=== PATIENT | male | born 1970 ===

== ENCOUNTER 2024-12-15 08:11 | Outpatient (CLI) | payer OTHER ==
--- NOTE | 2024-12-15 09:52 | RADIOLOGY REPORT ---
CLINICAL HISTORY: PAIN IN LEFT LOWER LEG COMPARISON: None TECHNIQUE: Multisequence multiplanar MRI images of the left knee were obtained without contrast. FINDINGS: Cruciate ligaments: Mildly thickened ACL with mild T2 hyperintense signal, may be seen with mucoid de generation or sequela of sprain. PCL is intact and appears otherwise unremarkable. Extensor mechanism: Quadriceps mechanism and patellar tendon are intact. Mild edema in the superior a spect of Hoffa's fat pad. Collateral ligaments: Medial and lateral collateral ligaments are intact and otherwise unremarkable. Menisci: Radial tear of the junction of the posterior horn and posterior root attachment of the media l meniscus, measuring up to 5 mm in transverse dimension, involving all 3 zones, with associated extr usion of the body of the medial meniscus beyond the medial tibial margin, abutting the MCL. Intrasubs tance signal in the body of the medial meniscus without extension to the articular surface to suggest tear. Lateral meniscus is intact. Cartilage: Mild chondral fraying minimal fissuring of the patella, greatest at the lateral patellar f acet. Bones: Minimal marrow edema in the lateral femoral condyle near the attachment site of the ACL, may b e reactive marrow signal changes. No acute fracture. Joint fluid: Moderate joint effusion. Other: Trace popliteal cyst. IMPRESSION: 1. Radial tear of the posterior horn/ posterior root junction of the medial meniscus with associated extrusion of the body of the medial meniscus. 2. Intrasubstance signal in the body of the medial meniscus without evidence of tear. 3. Thickened ACL with mildly increased T2 hyperintense signal, may be due to mucoid degeneration or s equelae of sprain. 4. Mild chondromalacia patellae. 5. Additional findings as described above.
--- NOTE | 2024-12-15 10:11 | RADIOLOGY REPORT ---
EXAM: MR MRI LOWER EXTREMITY LEFT CLINICAL INDICATION: PAIN IN LEFT LOWER LEG COMPARISON: None TECHNIQUE: Multiplanar, multisequence MRI of the left femur (thigh) was performed without intravenous contrast. The contralateral side is included on the large [id number] images. Contrast: None INTERPRETATION: Bones: There is no fracture or bone marrow edema. There is no marrow replacing lesion. Joints: Left hip joint not well visualized due to the field of view. Degenerative changes in the left knee joint. There is a knee joint effusion. Contralateral knee is included on the large field-of-vi ew images and demonstrates no suspicious abnormality. Soft tissues: There is no muscle atrophy. There is no soft tissue mass or fluid collection. The co urse of the left sciatic nerve is visualized and the signal characteristics and size are within ita l limits. IMPRESSION: 1. No acute bony or soft tissue finding in the left thigh. 2. Please see separate MRI of the left knee performed same date for additional findings.
== END 2024-12-15 23:59 | disposition home or self-care (01) ==
LOC: MRI02 08:11
PROVIDERS: ATTEND Family Medicine
DX: S83.242A Other tear of medial meniscus, current injury, left knee, initial encounter (principal); M25.562 Pain in left knee; M79.662 Pain in left lower leg; M25.462 Effusion, left knee; R20.2 Paresthesia of skin; M22.42 Chondromalacia patellae, left knee; X58.XXXA Exposure to other specified factors, initial encounter; Y93.89 Activity, other specified; Y92.89 Other specified places as the place of occurrence of the external cause; Y99.9 Unspecified external cause status
CPT/HCPCS: 73718; 73721